=== PATIENT | female | born 1970 | race Caucasian/White ===

== ENCOUNTER 2023-10-06 12:19 | Emergency (ER) | payer OTHER, SELFPAY ==
[2023-10-06 12:22] VITALS: BP 165/107
--- NOTE | 2023-10-06 12:51 | ED.GENMED ---
History of Present Illness
General
Chief Complaint: Abdominal Pain
Source: patient
Exam Limitations: none
Time Seen by Provider: 10/06/23 12:40
Nursing documentation reviewed up to this point in time: agreed with
Travel History
Have you had any contact with someone who has COVID-19?: No
Do you have any symptoms of coronavirus? Fever > 100 degrees, chills, cough, shortness of breath, sore throat, loss of taste or smell, muscle aches, or headache?: No
History of Present Illness
History of Present Illness:
Patient presents to ED secondary to worsening umbilical hernia, with swelling and pain over the past 5 days. Patient states that she has always had mild swelling inside her bellybutton, but has never experienced that swelling and pain. Patient was
evaluated by her primary care physician who referred patient to ED for an evaluation, including potential reduction of hernia. Otherwise, patient denies fever. Denies chills. Denies nausea or vomiting. Denies change in bowel habits. Denies loss
of appetite. Patient's surgical history includes .
Past History
Past History
ED Past Medical History: Psychiatric (anxiety)
ED Past Surgical History: None
Social History
Tobacco: Non-smoker
Alcohol: None
Review of Systems
Review of Systems
Allergies reviewed?: Yes
All Other Systems: ROS reviewed and negative except as documented in HPI and ROS
Constitutional: Reports no symptoms
ABD/GI: Reports abdominal pain and other (Umbilical hernia)
Musculoskeletal: Reports no symptoms
Skin: Reports no symptoms
Neurological: Reports no symptoms
Phy Exam
Physical Exam
Physical Exam:
Physical Exam
General: mild distress, not acutely ill. afebrile
Head: nc/at. eomi
Neck: supple. normal range of motion
Abdomen: normal bowel sounds. umbilical hernia noted with mild erythema, with tenderness to palpation
Neuro: alert and oriented. no focal neurological deficits
Skin: no rash
Psychiatric: well kept. interactive and cooperative
Extremities: no edema. no calf tenderness.
Course
Orders/Labs/Results
Orders:
Orders
10/06/23 13:20
Midazolam HCl [Versed] 5 mg .ROUTE .STK-MED ONE
10/06/23 13:21
Midazolam HCl [Versed] 2 mg IV NOW STA
10/06/23 13:46
Midazolam HCl [Versed] 2 mg IV NOW STA
10/06/23 14:14
Iohexol [Omnipaque] See Protocol PO NOW STA
10/06/23 14:15
CT Abd/pel W Iv And Oral Contr Urgent
Comment:
Reason For Exam: Umbilical hernia, not reducible with pain
10/06/23 14:16
Test Result ONCE
10/06/23 14:21
Basic Metabolic Panel Urgent
Complete Blood Count/With Diff Urgent
HCG, Serum Qualitative Screen Urgent
10/06/23 15:14
Potassium Chloride [KCl] 40 meq PO NOW STA
Abnormal Lab Results
10/06/23
14:21
WBC 11.2 H 10^3/uL
(4.8-10.8)
Hct 35.6 L %
(37.0-47.0)
Abs Immat Gran (auto) 0.1 H 10^3/uL
(0-0.05)
Absolute Neuts (auto) 8.2 H 10^3/uL
(1.4-6.5)
Absolute Monos (auto) 0.7 H 10^3/uL
(0.1-0.6)
Lymphocytes % 18.1 L %
(20.5-51.1)
Potassium 2.8 L mmol/L
(3.5-5.1)
Chloride 95 L mmol/L
(98-107)
Glucose 102 H mg/dl
(70-99)
10/06/23 14:21
10/06/23 14:21
Vital Signs
Initial and Last Documented VS:
Initial Vital Signs
Temp Pulse Resp BP Pulse Ox
98.1 F 82 16 165/107 98
10/06/23 12:22 10/06/23 12:22 10/06/23 12:22 10/06/23 12:22 10/06/23 12:22
Last Documented Vital Signs
Temp Pulse Resp BP Pulse Ox
98.1 F 76 17 143/76 98
10/06/23 12:22 10/06/23 16:28 10/06/23 16:28 10/06/23 16:28 10/06/23 16:28
MDM/Problems Addressed
MDM/Problems Addressed:
Umbilical hernia unable to be reduced during initial evaluation.
Discussed with Dr. Mary, on-call general surgeon. Recommends obtaining CT scan abdomen pelvis, to evaluate for potential bowel involvement.
Patient evaluated in ED by Dr. Mary, after CT scan. Patient will be discharged home at this time, with an office follow-up, for an outpatient hernia repair.
*Critical Care Note
Total Time (30-74mins, 75-104mins- exclusive of procedures): Not Applicable
ED Attending Note
-
Portions of this chart may have been created with voice recognition software.� Occasional wrong word or��sound alike� substitutions may have occurred due to the inherent limitations of voice recognition software.
Discharge Plan
Departure
Patient Disposition: Home (Routine Discharge)
Date of Disposition: 10/06/23
Time of Disposition: 17:08
Patient with high blood pressure during this ER visit?: Yes
Discharge Problem:
Hernia, umbilical
Instructions: Abdominal wall hernias
Prescriptions:
No Action
azelastine 1 SPRAY aerosol,spray
1 spray intranasal BID
fluticasone propionate 1 SPRAY spray,suspension
1 spray intranasal DAILY
esomeprazole magnesium [Nexium] 20 MG capsule,delayed release(DR/EC)
20 mg PO DAILY
docosahexaenoic acid-epa 1 CAP capsule
1 cap PO DAILY
Referrals:
Attila Parry DO [Family Provider] -
Ronnie Mary MD [Active] -
Activity Restrictions/Additional Instructions:
As discussed, please follow-up with referred general surgeon for further evaluation and treatment. You will be receiving phone call from Dr. Mary's office with an appointment date tomorrow.
Interventions
Interventions:
*Risk Screen - Suicide Last Done: 10/06/23 12:52
*General Assessment Last Done: 10/06/23 12:52
*Neglect/Abuse Screening Last Done: 10/06/23 12:52
ED- Fall Risk Assessment Last Done: 10/06/23 12:52
*ED COVID-19 Vaccine History Last Done: 10/06/23 12:52
*Nursing Disposition Last Done: 10/06/23 17:16
ZK-Mydwrk-Aoqygjlxgw Assessment Last Done: 10/06/23 12:52
Discharge Date and Time
Discharge Date/Time: 10/06/23 17:17
Print Language: PANAMANIAN
[2023-10-06 12:52] VITALS: BMI 34.4
[2023-10-06 13:33] VITALS: BP 138/75
[2023-10-06] MEDS: VERSED 2 MG IV (13:46)
[2023-10-06] MEDS: OMNIPAQUE 50 ML PO (14:23)
[2023-10-06 14:34] LABS: % Basophils 0.8 % (0-2); % Eosinophils 2.1 % (0-6); % Immature Granulocytes 0.4 % (0-0.5); % Lymphocytes 18.1 % (20.5-51.1); % Monocytes 5.8 % (1.7-9.3); % Neutrophils 72.8 % (42.2-75.2); Absolute Basophils 0.1 10^3/uL (0-0.2); Absolute Eosinophils 0.2 10^3/uL (0-0.7); Absolute Immature Granulocytes 0.1 10^3/uL (0-0.05); Absolute Monocytes 0.7 10^3/uL (0.1-0.6); Absolute Neutrophils 8.2 10^3/uL (1.4-6.5); Hematocrit 35.6 % (37.0-47.0); Hemoglobin 12.5 g/dL (12.0-16.0); Mean Corp Hgb Conc. 35.1 g/dL (33.0-37.0); Mean Corpuscular Hgb 28.9 pg (27.0-31.0); Mean Corpuscular Volume 82.2 fL (81.0-99.0); Mean Platelet Volume 8.8 fL (7.4-10.4); Nucleated Red Blood Cells % 0 %; Platelet Count 366 10^3/uL (130-400); Red Blood Cell Count 4.33 10^6/uL (4.20-5.40); Red Cell Dist. Width 13.5 % (11.5-14.5); White Blood Cell Count 11.2 10^3/uL (4.8-10.8)
[2023-10-06 14:56] LABS: HCG, Serum Qualitative Screen Negative
[2023-10-06 14:59] VITALS: BP 124/75
[2023-10-06 14:59] LABS: Blood Urea Nitrogen 7 mg/dl (7-17); Calcium 8.8 mg/dl (8.4-10.2); Carbon Dioxide 30 mmol/L (22-30); Chloride 95 mmol/L (98-107); Estimated Creatinine Clearance > 125 ml/min; Glucose 102 mg/dl (70-99); Potassium 2.8 mmol/L (3.5-5.1); Sodium 136 mmol/L (135-145); eGFR > 60.00
[2023-10-06] MEDS: KCL 40 MEQ PO (15:54)
[2023-10-06 16:28] VITALS: BP 143/76
--- NOTE | 2023-10-06 17:08 | CON.GS ---
Consultation
-
Requesting Provider: Christa
Performing Provider: Tyra
Reason for Consultation: Incarcerated umbilical hernia
Medical History
-
Chief Complaint: Abd pain
History of Present Illness:
53F with known many year hx of umbilical hernia. In the past intermittently tender, past few days has been worse than ever. Denies n/v. Voiding and stooling at baseline. Denies f/c. Denies heavy lifting, straining, coughing, does have seasonal
allergies and takes meds for this but has been sneezing.
Past Medical History
Past Medical History: Psychiatric
Past Surgical History: Reviewed & Noncontributory
Social History
Tobacco: Non-Smoker
Alcohol: None
Personal:
Family History
Family History: Reviewed & Noncontributory
Allergies / Home Medications
Allergy/AdvReac Type Severity Reaction Status Date / Time
acetaminophen Allergy Hives Verified 10/21/19 13:40
[From Tylenol-Codeine #3]
codeine Allergy Hives Verified 10/21/19 13:40
codeine phosphate Allergy Hives Verified 10/21/19 13:40
[From Tylenol-Codeine #3]
latex Allergy Rash Verified 10/21/19 13:40
�Medication �Instructions �Recorded �Confirmed �Type
azelastine 137 mcg (0.1 %) nasal 1 spray intranasal BID 10/21/19 10/21/19 History
spray aerosol
docosahexaenoic acid (dha)-epa 120 1 cap PO DAILY 10/21/19 10/21/19 History
mg-180 mg capsule
esomeprazole magnesium 20 mg 20 mg PO DAILY 10/21/19 10/21/19 History
capsule,delayed release (Nexium)
fluticasone propionate 50 1 spray intranasal DAILY 10/21/19 10/21/19 History
mcg/actuation nasal
spray,suspension
Review of Systems
-
A 10 point review of systems was completed, and was negative except as per HPI.
Physical Exam
Vital Signs
Temp Pulse Resp BP Pulse Ox
98.1 F 76 17 143/76 98
10/06/23 12:22 10/06/23 16:28 10/06/23 16:28 10/06/23 16:28 10/06/23 16:28
10/05/23 10/06/23 10/07/23
06:59 06:59 06:59
Actual Weight 93.7 kg
Body Mass Index (BMI) 34.4
Lab Results
10/06/23 14:21
10/06/23 14:21
WBC 11.2 10^3/uL (4.8-10.8) H 10/06/23 14:21
Hgb 12.5 g/dL (12.0-16.0) 10/06/23 14:21
Hct 35.6 % (37.0-47.0) L 10/06/23 14:21
Plt Count 366 10^3/uL (130-400) 10/06/23 14:21
Abs Immat Gran (auto) 0.1 10^3/uL (0-0.05) H 10/06/23 14:21
Neutrophils % 72.8 % (42.2-75.2) 10/06/23 14:21
Physical Exam
General: Well Developed, Well Nourished and Other (tearful)
GI: Soft, Non Distended, Tender (ttp at umbilicus, small soft incarcerated umbilical hernia noted with mild erythema) and Obese
Skin: Warm and Dry
Neuro: AO x 3
Data Reviewed
-
CT Scan: Image Personally Visualized and interpreted, Report Reviewed by me, Discussed with Physician and Discussed with Patient
Labs: Labs Reviewed by me, Discussed with Physician and Discussed with Patient
Assessment / Plan
-
53F with incarcerated umbilical hernia
AFVSS, was very concerned there was bowel involvement, this prompted presentation
Mild leukocytosis noted, likely inflammation from the herniated fat
Erythema likely from mild ischemia to the incarcrated fat vs post-reduction attempt
Advised her there is no surgical emergency
Advised tylenol, ibuprofen, rest, ice, minimize sneezing as much as poss
Advised to monitor the erythema and contact me if it becomes darker deeper red color or black and blue
I will call her tomorrow check in and to set up elective MIS hernia repair
She is in agreement
All questions answered
== END 2023-10-06 17:17 | disposition home or self-care (01) ==
LOC: EMR 12:19
PROVIDERS: EMERGENCY PHYSICIAN Emergency Medicine; FAMILY PHYSICIAN Family Medicine; OTHER PHYSICIAN Surgery
DX: K42.0 Umbilical hernia with obstruction, without gangrene (principal); F41.9 Anxiety disorder, unspecified; I10 Essential (primary) hypertension; K21.9 Gastro-esophageal reflux disease without esophagitis; E78.5 Hyperlipidemia, unspecified; Z88.5 Allergy status to narcotic agent; Z88.6 Allergy status to analgesic agent; Z91.040 Latex allergy status
CPT/HCPCS: 99285; 96374; 74177; 80048; 84703; 85025; Q9967

== ENCOUNTER 2023-10-25 06:40 | Day surgery (SDC) | payer OTHER, SELFPAY ==
--- NOTE | 2023-10-19 15:25 | PTCARENOTE ---
Addendum entered by Cherry Townsend RN 10/19/23 15:48:
Patient scheduled for PAT 10/19- Dr. Vargas notified- potassium to be drawn 10/19
Original Note:
Patients 10/05 potassium- 2.8. Dr Vargas notified- to be repeated day of surgery
[2023-10-20 13:21] VITALS: BMI 34.9
[2023-10-20 14:16] LABS: Potassium 3.2 mmol/L (3.5-5.1)
--- NOTE | 2023-10-21 08:52 | PTCARENOTE ---
Katalina @ Dr. Arnold office notified of patients potassium on 10/05- 2.8; 10/19-3.2. PCP notified as well.
--- NOTE | 2023-10-21 13:14 | PTCARENOTE ---
Dr. Barajas notified of patient 10/19 3.2 potassium- order for potassium to be drawn day of surgery entered by Dr. Barajas.
[2023-10-25 11:34] VITALS: BMI 34.9
[2023-10-25 11:36] VITALS: BP 148/81
[2023-10-25] MEDS: NORMOSOL-R 1000 IV (11:59)
[2023-10-25] MEDS: TYLENOL 1000 MG PO (11:59)
[2023-10-25 12:06] LABS: Potassium, Plasma 2.5 mMOL/L
--- NOTE | 2023-10-25 12:43 | W.PN.UPDATE ---
Update Note
Progress Note Update
Pt hypokalemic in the preop area today. K 2.8 on 10/05 at the time of my encounter. It was rechecked 2 weeks later and was 3.2. Today it is down to 2.5.
She does take a multivitamin daily, and our standard preop instructions from PAT ask patients to hold all supplements/vitamins for 7 days.
I suspect her multivitamin has been masking some underlying issue that is driving the hypokalemia.
In the interest of safety we will defer her elective surgery for today. I asked her to restart her multivitamin and to see her PCP regarding this issue. I will work to reschedule her in the coming weeks once the hypokalemia is better controlled.
== END 2023-10-25 12:54 | disposition home or self-care (01) ==
LOC: SDS 06:40
PROVIDERS: Anesthesiology; ATTENDING PHYSICIAN Surgery; FAMILY PHYSICIAN Family Medicine; REFERRING PHYSICIAN Anesthesiology
DX: K42.0 Umbilical hernia with obstruction, without gangrene (principal); Z53.9 Procedure and treatment not carried out, unspecified reason
CPT/HCPCS: 49592; 36415; 84132; 93005

== ENCOUNTER → 2024-01-18 18:30 | Outpatient (REF) | payer OTHER, SELFPAY | LOC: WDC 18:30 | PROVIDERS: ATTENDING PHYSICIAN Obstetrics & Gynecology; FAMILY PHYSICIAN Family Medicine | DX: Z12.31 Encounter for screening mammogram for malignant neoplasm of breast (principal) | CPT/HCPCS: 77063; 77067 ==

== ENCOUNTER → 2024-01-25 10:28 | Outpatient (REF) | payer OTHER, SELFPAY | LOC: WDC 10:28 | PROVIDERS: ATTENDING PHYSICIAN Obstetrics & Gynecology; FAMILY PHYSICIAN Family Medicine | DX: R92.8 Other abnormal and inconclusive findings on diagnostic imaging of breast (principal) | CPT/HCPCS: 76642 ==

== ENCOUNTER → 2025-02-21 18:03 | Outpatient (REF) | payer OTHER, SELFPAY | LOC: WDC 18:03 | PROVIDERS: ATTENDING PHYSICIAN Obstetrics & Gynecology; FAMILY PHYSICIAN Family Medicine | DX: Z12.31 Encounter for screening mammogram for malignant neoplasm of breast (principal) | CPT/HCPCS: 77063; 77067 ==